=== PATIENT | female | born 1975 | race Asian ===

== ENCOUNTER 2022-12-20 04:20 | Day surgery (SDC) | payer OTHER ==
[2022-12-20] MEDS ORDERED: FENTANYL CITRATE/PF 50 MCG/ML VIAL ONE (09:46)
[2022-12-20] MEDS ORDERED: KETAMINE HCL 500 MG/10 ML VIAL ONE (10:04)
[2022-12-20 10:48] VITALS: TEMP 98
[2022-12-20 11:15] VITALS: RESP 18
[2022-12-20 11:19] VITALS: BP 105/65; PULSE 54
== END 2022-12-20 11:30 | disposition home or self-care (01) ==
LOC: JASU-ENDO 04:20
PROVIDERS: ATTEND Internal Medicine Gastroenterology
PROC: 0DJD8ZZ Inspection of Lower Intestinal Tract, Via Natural or Artificial Opening Endoscopic (ICD-10-PCS; principal; 2022-12-20 09:30)
DX: Z12.11 Encounter for screening for malignant neoplasm of colon (principal); K64.8 Other hemorrhoids; K59.89 Other specified functional intestinal disorders

== ENCOUNTER 2023-01-03 05:35 | Day surgery (SDC) | payer OTHER ==
[2023-01-01 15:03] VITALS: BMI 18.1
[2023-01-03 14:35] VITALS: TEMP 98
[2023-01-03 15:11] VITALS: BP 101/62; PULSE 60; RESP 12
== END 2023-01-03 11:35 | disposition home or self-care (01) ==
LOC: JASU-ENDO 05:35
PROVIDERS: ATTEND Internal Medicine Gastroenterology
PROC: 0DB78ZX Excision of Stomach, Pylorus, Via Natural or Artificial Opening Endoscopic, Diagnostic (ICD-10-PCS; 2023-01-03)
PROC: 0DB68ZX Excision of Stomach, Via Natural or Artificial Opening Endoscopic, Diagnostic (ICD-10-PCS; principal; 2023-01-03 10:15)
DX: K29.50 Unspecified chronic gastritis without bleeding (principal); K31.7 Polyp of stomach and duodenum; K21.9 Gastro-esophageal reflux disease without esophagitis
CPT/HCPCS: 88305-TC; 88342-TC